=== PATIENT | female | born 2000 | race Caucasian/White ===

== ENCOUNTER → 2023-05-04 11:14 | Outpatient (CLI) | payer OTHER, SELFPAY ==
--- NOTE | ~2023-05-04 | US_ITS ---
EXAMINATION: US OB follow up DATE: 05/04/2023 11:37 INDICATION: Amniotic fluid and presentation assessment during third trimester TECHNIQUE: Real-time ultrasound of the pelvis was performed. The interpreting radiologist was not pre sent for the study. COMPARISON: None. FINDINGS: There is a single living fetus in breech presentation. The placenta is to the left. c ardiac activity and movement are noted. heart rate is 131 beats per minute (bpm). The amn iotic fluid index is 11.7 cm which is normal (normal range: 7.5 cm to 24.4 cm). The following biometric data were obtained: Biparietal diameter (BPD): 8.9 cm; head circumference (HC): 33.6 cm; abdominal circumference (AC): 35 .2 cm; femur length (FL): 7.3 cm. These measurements are concordant. Estimated weight is 3461 g +/- 519 g, which correlates with the 85th percentile when 05/24/2023 i s used as estimated date of delivery. As single measurements, these parameters are each equal to the following estimated gestational ages w ith ranges of +/- 2 standard deviations: BPD: 36 weeks 2 days ( 33 weeks 1 days - 39 weeks 3 days). HC: 38 weeks 4 days ( 35 weeks 6 days - 41 weeks 2 days). AC: 39 weeks 1 days ( 36 weeks 0 days - 42 weeks 1 days). FL: 37 weeks 4 days ( 34 weeks 3 days - 40 weeks 4 days). estimated gestational age based solely on measurements from this exam is 37 weeks 6 days +/- 2 weeks 5 days. IMPRESSION: 1. Single living fetus in breech presentation. 2. Normal amniotic fluid index. 3. Estimated weight is 3461 g +/- 519 g, which correlates with the 85th percentile when 4 is used as estimated date of delivery. Reviewed, dictated and finalized at location [facility] IMPRESSION: 1. Single living fetus in breech presentation. 2. Normal amniotic fluid index. 3. Estimated weight is 3461 g +/- 519 g, which correlates with the 85th p ercentile when 05/24/2023 is used as estimated date of delivery.
== END ==
PROVIDERS: PCP Obstetrics & Gynecology; Visit Provider Obstetrics & Gynecology
DX: Z34.93 Encounter for supervision of normal pregnancy, unspecified, third trimester (principal); Z3A.37 37 weeks gestation of pregnancy
CPT/HCPCS: 76816

== ENCOUNTER 2023-05-18 13:16 | Outpatient (CLI) | payer OTHER, SELFPAY ==
[2023-05-18 13:48] LABS: Hematocrit 39.1 % (37.0-47.0); Mean Corpuscular HGB Conc 33.2 g/dl (32-36); Mean Corpuscular Hemoglobin 30.4 pg (26-34); Mean Corpuscular Volume 91.4 fl (80-100); Mean Platelet Volume 10.8 fl (7.4-10.4); Platelet Count Result 215 k/mm3 (150-375); Red Blood Count 4.28 M/mm3 (4.2-5.4); Red Cell Distribution Width 13.5 % (11.5-14.5); White Blood Count 10.1 K/mm3 (4.5-10.0)
[2023-05-18 14:32] LABS: Rapid Plasma Reagin Non-Reactive (NonReactive)
== END 2023-05-18 13:17 | disposition home or self-care (01) ==
PROVIDERS: PCP Obstetrics & Gynecology; Visit Provider Obstetrics & Gynecology
DX: Z34.93 Encounter for supervision of normal pregnancy, unspecified, third trimester (principal); Z3A.00 Weeks of gestation of pregnancy not specified
CPT/HCPCS: 36415; 85027; 86592; 86850; 86900; 86901

== ENCOUNTER 2023-05-19 09:50 | Inpatient (IN) | payer OTHER, SELFPAY ==
[2023-05-19] VITALS (47 sets, daily range): BP systolic 101–148; BP diastolic 65–117; PULSE 64–169; RESP 16–18; TEMP 36.1–36.6; O2SAT 97–100; BMI 26.6
--- NOTE | 2023-05-19 10:07 | LDADM ---
This patient, Milana Gomez, was admitted to OB Post [facility] on 05/19/23 at 09:50. Plans for labor, pain management and were discussed with patient. Patient/family oriented to hospital policies and general routines including ID bracelet, bed and alarms, visiting hours, pain management, procedures, bathroom and other care routines, personal items, smoking policy, room service/diet and guest tray routines, infant security routines, and visiting hours. Patient/Family are encouraged to report perceived risks to care and to ask questions if they do not understand what they are told or what they should do. See OBIX for further documentation.
[2023-05-19] MEDS: ACETAMINOPHEN 500 MG TABLET 1000 MG PO (10:16)
[2023-05-19] MEDS: LACTATED RINGERS 1,000 ML 125 ML IV CONT ×2 (10:17→10:58)
[2023-05-19] MEDS: ONDANSETRON INJ 4 MG/2 ML VIAL IV PUSH ×2 (11:37→19:32)
[2023-05-19] MEDS: FAMOTIDINE 20 MG/2 ML VIAL IV PUSH (11:37)
--- NOTE | 2023-05-19 11:48 | P.PNAN_ITS ---
Anes - Initial Pre Proc Eval Procedure: Operation Date: 05/19/23 12:00 Proposed Procedures p Section - Jo Ann Ellis MD Date/Time: 05/19/23 11:48 Surgeon: Jo Ann Ellis MD Pre Op Diagnosis: c/s Patient Data Age: 23 Gender: F Height: 1.57 m Weight: 66 kg Last Vital Signs Pulse 89 05/19/23 11:46 BP 148/81 H 05/19/23 11:46 O2 Del Method Room Air 05/19/23 10:06 Allergies Allergy/AdvReac Type Severity Reaction Status Date / Time No Known Allergies Allergy Verified 05/13/23 15:55 Home Medications Medication Instructions Recorded Confirmed Type [id number] fum 65 mg 1 pkg PO ONCE 09/23/22 05/19/23 History iron-folic acid 1 mg-dha 250 mg oral roel Patient hx anesthesia problems: none Family hx anesthesia problems: none Results Review: All pre-operative results and documents have been reviewed as part of the pre- operative evaluation. [facility] Past Medical History Medical History KISHA (amniotic fluid index) decreased History of irregular menstrual cycles Suppression of menstruation Surgical History Surgical History History of wisdom tooth extraction Family History Family History Other Patient denies significant medical history Social History Social History Smoking status: Former smoker Tobacco type: e-cigarettes/vaping Alcohol intake: former Alcohol use details: 4 month Substance use: never Substance use type: does not use Do You Feel Safe in your Home?: Yes Lack of Transportation: No Lack of Food: Never True Current Housing: I Have Housing Concerned About Future Housing: No Difficulty Paying Gas/Electric Bills: No Difficulty Paying for Meds: No Currently Unemployed: No Education: Don't Know Difficulty w/ Childcare or Family Care: No Living arrangements: other Additional living arrangements comments: Occupation/Education: occupation 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 Gender identity (if verbalized by the patient): Female Sexual Orientation (if Verbalized by the Patient): Straight or Heterosexual Spiritual care concerns: No Anes - Eval Final PreProcedure Day of Procedure 05/19/23 11:48 Patient weight: overweight Heart: regular rate and rhythm Lungs: clear to auscultation Airway: Mallampati scale class II Neurological: alert and oriented Last oral intake: >/= 8 hours ASA classification: II Emergent: no Anesthetic plan: proceed Anesthesia type and monitoring: regional spinal and standard monitoring Results Review: All pre-operative results and documents have been reviewed as part of the pre- operative evaluation. Informed Consent: The patient's anesthetic plan and its attendant risks and benefits were discussed with the patient/family/POA. Questions were solicited and answers provided to the satisfaction of the patient/family/POA.
--- NOTE | 2023-05-19 12:04 | PM.IMHP ---
H&P: HPI History of Present Illness Date/Time: 05/19/23 07:00 Chief Complaint: scheduled Narrative: Milana is a 23yo @ 39.2wks (LORIE 05/24/23) who presents for scheduled primary low transverse section due to breech malpresentation. She reports good movements. No ctx, vb, or lof. She has had regular care. Her is complicated by: - Breech malpresentation - Low lying placenta-- RESOLVED Review of Systems Constitutional: Constitutional: Denies chills, Denies fever(s) and Denies headache(s) Eyes: Eyes: Denies change in vision ENT: Denies headache(s) Cardiovascular: Cardiovascular: Denies chest pain and Denies dyspnea Respiratory: Respiratory: Denies dyspnea Genitourinary: Genitourinary: Denies abnormal vaginal bleeding and Denies vaginal discharge Neurologic: Denies headache(s) Psychiatric: Psychiatric: Denies anxiety and Denies depression PMFSH Past Medical History Medical History KISHA (amniotic fluid index) decreased History of irregular menstrual cycles Suppression of menstruation Surgical History Surgical History History of wisdom tooth extraction Family History Family History Other Patient denies significant medical history Social History Social History Smoking status: Former smoker Tobacco type: e-cigarettes/vaping Alcohol intake: former Alcohol use details: 4 month Substance use: never Substance use type: does not use Do You Feel Safe in your Home?: Yes Lack of Transportation: No Lack of Food: Never True Current Housing: I Have Housing Concerned About Future Housing: No Difficulty Paying Gas/Electric Bills: No Difficulty Paying for Meds: No Currently Unemployed: No Education: Don't Know Difficulty w/ Childcare or Family Care: No Living arrangements: other Additional living arrangements comments: Occupation/Education: occupation 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 Gender identity (if verbalized by the patient): Female Sexual Orientation (if Verbalized by the Patient): Straight or Heterosexual Spiritual care concerns: No Meds Home Medications and Allergies Home Medications Medication Instructions Recorded Confirmed Type [id number] fum 65 mg 1 pkg PO ONCE 09/23/22 05/19/23 History iron-folic acid 1 mg-dha 250 mg oral roel Allergies Allergy/AdvReac Type Severity Reaction Status Date / Time No Known Allergies Allergy Verified 05/13/23 15:55 Exam Const: General: cooperative, healthy appearing, comfortable and no acute distress Orientation/consciousness: patient oriented x3 Resp: Effort & Inspection: normal respiratory effort Cardio: Rate: regular rate GI: GI Palp: No abdominal tenderness : Other: FHT's: 130's/ mod abner/ + accels/ no decels - cat 1 TOCO: irregular ctxs Membranes: intact Presentation: BREECH Skin: General skin exam: normal color Neuro: General: patient oriented x3 Extrem: General: normal to inspection Psych: Appearance: grossly normal Affect: normal affect Attitude: cooperative Assessment and Plan Assessment and plan (1) Breech presentation: Qualifiers: Fetus number: single or unspecified fetus Qualified Code(s): O32.1XX0 - Maternal care for breech presentation, not applicable or unspecified Code(s): O32.1XX0 - Maternal care for breech presentation, not applicable or unspecified Status: Acute Plan - Breech malpresentation confirmed on bedside US - Pt declines EVC and wants to proceed with pLTCS - Risks and benefits discussed in detail - heart tones reassuring - Ancef 2g IV once pre-op
--- NOTE | 2023-05-19 12:05 | WPDHPUPDATE1 ---
History and Physical Update Update Date/Time: 05/19/23 12:05 History and Physical has been reviewed, including an updated exam of the patient. There are NO changes in the patient's condition. Risks, benefits, and alternatives have been discussed and questions answered. Patient agrees to proceed with procedure.
[2023-05-19] MEDS: ceFAZolin 2 GM/D5W 50 ML 2 GM/50 ML BAG IVPB (12:07)
--- NOTE | 2023-05-19 13:17 | W.PM.OBCSD ---
OB - Delivery Note Procedure Delivery date: 05/19/23 Pre-op diagnosis: Breech Presentation Post-op Diagnosis: Same Procedure Performed: Primary Primary branch: low cervical, transverse Surgeon: Jo Ann Ellis MD Anesthesia type: Spinal Description of Procedure/Findings: markell breech female; meconium stained fluid, normal bilateral fallopian tubes and ovaries. Good hemostasis at end of case. Specimen: No Estimated Blood Loss: 485 Pathology: None sent Complications: No immediate complications Condition: Stable Disposition: Floor [place] Baby Date of : 05/19/23 Time of : 12:38 Weeks of gestation at delivery: 39 (.2) gender: Female Weight (pounds): 8 Weight (ounces): 3 presentation: markell breech Placenta delivery description: Expressed Cord Vessel Description: 3 Vessels and Clamped/Cut score one minute: 8 score five minutes: 9 Narrative: She was counseled on all risks and benefits in detail. She was taken to the operating room where spinal was placed. She was then prepped and draped in the normal sterile fashion. She received 2g Ancef and a time out was performed. A Pfannenstiel incision was made in the skin and carried down to the underlying fascia. The fascia was nicked on either side of the midline and the fascial incision was extended laterally and superiorly using curved Badillo scissors. The fascia was then elevated using Rosy clamps and the underlying rectus muscles were dissected off the fascia, superiorly and inferiorly. The rectus muscles were then in the midline and the peritoneum was entered bluntly. Once adequate exposure was obtained, a Mobius self retractor was placed within the abdomen. A low transverse incision was made on the lower uterine segment and meconium stained fluid was noted. The fetus was delivered doing normal breech maneuvers without complications. The had spontaneous cry and the mouth and nose were bulb suctioned. The cord was clamped and cut and the infant was handed off to the awaiting pediatric nurse. A segment of the cord was collected for cord gases. The remaining cord blood was collected for typing. With pitocin infusing, the placenta delivered with gentle traction on the cord without complications. The uterus was then cleared out of all clots and debris using a clean, moist lap. The hysterotomy was then repaired in a running fashion using 0 Vicryl. A second layer imbricating suture was then made using 0 Vicryl. The hysterotomy was found to be hemostatic and good uterine tone was noted. The bilateral adnexa were examined and found to be normal. The pelvis was cleared of all clots and fluid. The Mobius retractor was removed from the abdomen. The peritoneum, muscle, and fascia were examined and made hemostatic with bovie cautery. The fascia was then repaired using a 0 Vicryl suture in a running fashion. The subcutaneous tissue was then irrigated and made hemostatic with bovie cautery. The skin was then closed using 4-0 Monocryl in a running subcuticular fashion. A Mepilex dressing was placed over the incision. Sponge, lap, needle and instrument counts were correct at the end of the procedure x2. The patient tolerated the procedure well and was taken to recovery in a stable condition. [facility] Delivery Billing Delivery Delivery: Delivery Charge
[2023-05-19] MEDS: OXYTOCIN 30 UNITS/NS 500 ML 30 UNITS/500 ML BAG 125 UNITS IV CONT (14:51)
[2023-05-19] MEDS: MORPHINE SULFATE INJ (*CRX) 10 MG/ML AMP 3 MG IV PUSH ×2 (15:00→15:10)
--- NOTE | 2023-05-19 15:13 | PC.NURSE ---
Dr Ellis notified of increase in bleeding and passing clots, orders received.
[2023-05-19] MEDS: miSOPROStol 200 MCG TABLET 1000 MCG (15:20)
--- NOTE | 2023-05-19 15:51 | PC.NURSE ---
[id number] Called to assist with that was born primary C/S for breech at 1238. was feoc-it-ayth with mother in laid-back position attempting to latch. opens and is unable to latch effectively. When cries the mouth is opened wide, however; the tongue goes to the top gumline. Infant opens wide, then slides to a shallow opening with the nipple in the front of the mouth visible. When the latches and the nipple is not visualized, then dimpling is seen and infants mouth moves to shallow and stops efforts. Nursery RN has expressed 2mls of colostrum and syringe fed it to the infant. Encouraged understanding of the benefits of skin to skin (demonstrating unwrapping infant and placing upright on her chest), stimulating with massage touch, changing positions to encourage wakefulness, how to watch for early feeding cues, responsive feeding, feeding on demand (aiming for 8-12 times in 24 hours, about every 2-3 hours), milk production, hand expression, spoon/syringe feeding, and how to protect the milk supply and breast focus. Mother works well with her with encouragement, education, and practices hand expression. Mother acknowledges understanding of the information and the plan is to meet again on the post- floor as she will be transferred soon. Reported to the PP receiving RN.
[2023-05-19] MEDS: KETOROLAC 30 MG/ML VIAL (*BKC) IV PUSH ×2 (17:06→22:10)
[2023-05-19] MEDS: DEXTROSE 5%/0.45% SOD CHL 1,000 ML 125 ML IV CONT (19:32)
[2023-05-19] MEDS: ACETAMINOPHEN 325 MG TABLET 650 MG PO (22:10)
[2023-05-20 01:36] VITALS: BP 113/62; PULSE 89; RESP 16; TEMP 36.7; O2SAT 98
[2023-05-20 06:02] LABS: Basophils Absolute Auto 0.1 K/mm3 (0.0-0.1); Basophils Percent Auto 0.3 % (0.2-1.2); Eosinophils Absolute Auto 0.1 K/mm3 (0-0.3); Eosinophils Percent Auto 0.4 % (0-4.4); Hematocrit 29.9 % (37.0-47.0); Hemoglobin 10.2 g/dL (12.0-15.0); Immature Granulocyte Absolute 0.23 K/mm3 (0.00-0.031); Immature Granulocyte Percent A 1.4 % (0-0.5); Lymphocytes Absolute Auto 1.44 K/mm3 (0.9-3.2); Mean Corpuscular HGB Conc 34.1 g/dl (32-36); Mean Corpuscular Volume 90.9 fl (80-100); Mean Platelet Volume 11.1 fl (7.4-10.4); Monocytes Absolute Auto 1.5 K/mm3 (0.1-0.6); Monocytes Percent Auto 9.6 % (2.6-8.5); Neutrophils Absolute Auto 12.7 K/mm3 (1.3-6.7); Neutrophils Percent Auto 79.3 % (45.5-73.1); Platelet Count Result 210 k/mm3 (150-375); Red Blood Count 3.29 M/mm3 (4.2-5.4); Red Cell Distribution Width 13.2 % (11.5-14.5)
--- NOTE | 2023-05-20 06:35 | P.PNOB_ITS ---
OB - PN: Subj Subjective Date/time seen: 05/20/23 06:35 Narrative: POD#1 Milana reports doing well today. 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 Her pain is controlled with po meds. She is tolerating regular diet (snacked). The catheter was removed around 0500; has not had spontaneous void. Ambulated in the room last night; no symptoms of anemia. She denies any issues with her incision. She is breast feeding. OB - PN: Obj Data Labs 05/20/23 05:18 OB - PN A/P Assessment and Plan (1) S/P section: Code(s): Z98.891 - History of uterine scar from previous surgery Status: Acute (2) Breech presentation: Qualifiers: Fetus number: single or unspecified fetus Qualified Code(s): O32.1XX0 - Maternal care for breech presentation, not applicable or unspecified Code(s): O32.1XX0 - Maternal care for breech presentation, not applicable or unspecified Status: Acute Plan day: 1 Plan: routine care Comments: - continue pain meds - awaiting spontaneous void; if nothing in 6 hours, plan for bladder scan and possible replacement of crockett if large volume noted - regular diet/po hydration/ambulation encouraged - continue to monitor bleeding - put baby to breast Time Spent With Patient Time: Total time spent is greater than 50% in coordination of care (as documented) at patient's floor/unit and/or counseling patient: Review of Systems Constitutional: Constitutional: Denies chills, Denies fever(s) and Denies headache(s) Eyes: Eyes: Denies change in vision ENT: Denies dizziness and Denies headache(s) Cardiovascular: Cardiovascular: Denies chest pain, Denies palpitations and Denies dyspnea Respiratory: Respiratory: Denies cough and Denies dyspnea Gastrointestinal: Gastrointestinal: Denies nausea and Denies vomiting Genitourinary: Comments: normal bleeding Neurologic: Denies dizziness and Denies headache(s) Endocrine: Endocrine: Denies palpitations Exam Const: General: cooperative, healthy appearing, comfortable and no acute distress Orientation/consciousness: patient oriented x3 Resp: Effort & Inspection: normal respiratory effort Auscultation: clear to auscultation bilaterally Cardio: Rate: regular rate GI: Inspection: non-distended and incision (covered with clean dressing) GI Palp: Yes abdominal tenderness (appropriate) and Yes Soft to palpation Auscultation: normal bowel sounds : Other: fundus firm Skin: General skin exam: normal color Neuro: General: patient oriented x3 Extrem: General: normal to inspection Psych: Appearance: grossly normal Affect: normal affect Attitude: c ooperative
[2023-05-20] MEDS: DOCUSATE SODIUM 100 MG CAPSULE PO ×2 (06:40→16:32)
[2023-05-20] MEDS: SIMETHICONE 80 MG TAB.CHEW PO ×3 (06:40→16:32)
[2023-05-20] MEDS: LIDOCAINE 5% PATCH 1 PATCH TRANSDERM (06:40)
[2023-05-20] MEDS: MULTIVIT/MIN/PREN/FOL AC/IRON TABLET 1 TAB PO (06:40)
[2023-05-20] MEDS: ACETAMINOPHEN 325 MG TABLET 650 MG PO ×2 (06:40→12:30)
[2023-05-20] MEDS: IBUPROFEN 600 MG TABLET PO ×2 (06:40→12:30)
[2023-05-20 08:10] VITALS: BP 112/62; PULSE 74; RESP 16; TEMP 37.3; O2SAT 98
[2023-05-20 12:11] VITALS: BP 129/68; PULSE 88; RESP 16; TEMP 37.2; O2SAT 100
--- NOTE | 2023-05-20 13:38 | WPDANLDPN2 ---
Anes-Prog Note L&D Date/Time: 05/20/23 13:38 Comfortable throughout: labor and delivery Neuraxial method: epidural Epidural/Spinal procedure site: clean & non-tender Neuro status: Neuro function grossly intact. Cardiovascular status: normal Respiratory status: normal Airway patency: baseline Mental status: baseline Post-Op hydration status: normal Vital Signs: Last Vital Signs Temp 99 F 05/20/23 12:11 Pulse 88 05/20/23 12:11 Resp 16 05/20/23 12:11 BP 129/68 05/20/23 12:11 Pulse Ox 100 05/20/23 12:11 O2 Del Method Room Air 05/20/23 01:36 Pain score (VAS): 0/10 I/O: Intake & Output 05/19/23 05/20/23 05/20/23 23:59 07:59 15:59 Intake Total 2200 Output Total 500 2650 Balance -500 -450 Post-procedural complaints: none Patient feedback: Patient satisfied with anesthetic care.
--- NOTE | 2023-05-20 13:38 | WPDANLDPN2 ---
Anes-Prog Note L&D Date/Time: 05/20/23 13:38 Comfortable throughout: section Neuraxial method: spinal Epidural/Spinal procedure site: clean & non-tender Neuro status: Neuro function grossly intact. Cardiovascular status: normal Respiratory status: normal Airway patency: baseline Mental status: baseline Post-Op hydration status: normal Vital Signs: Last Vital Signs Temp 99 F 05/20/23 12:11 Pulse 88 05/20/23 12:11 Resp 16 05/20/23 12:11 BP 129/68 05/20/23 12:11 Pulse Ox 100 05/20/23 12:11 O2 Del Method Room Air 05/20/23 01:36 Pain score (VAS): 0 I/O: Intake & Output 05/19/23 05/20/23 05/20/23 23:59 07:59 15:59 Intake Total 2200 Output Total 500 2650 Balance -500 -450 Post-procedural complaints: none Patient feedback: Patient satisfied with anesthetic care.
--- NOTE | 2023-05-20 13:40 | WPDANLDNPN2 ---
Anes-Prog Note L&D-Neuraxial Date/Time: 05/20/23 13:40 Neuraxial medications: intrathecal PF morphine Opiod-related complaints: none Patient feedback: Patient satisfied with post-operative pain management.
--- NOTE | 2023-05-20 17:26 | PC.NURSE ---
[id number] Purposefully rounded to assess needs. Mother is demonstrating independent to the right breast using cradle positioning, infant has nice rounded cheek line with good rocking motion, suck/swallow/pause appropriate, and mother denies pain. Infant self detached and there was very slight misshaping. Reviewed with mother attempting different positions as they both are learning working on the optimal latch. Reviewed comfort measures of healing with a warm, wet washcloth to rinse breast, then leave open to air-dry, good handwashing when or touching the breast/nipples to prevent infection. Mother voiced understanding of skin to skin, stimulating with massage touch, responsive feedings, hand expressed colostrum, talking to infant to encourage if it has been 2 -2.5 hours since the start of the last , to call if infant does not latch, or if there is discomfort with . Inpatient/outpatient resources provided with feeding sheet, name written on the communication board, and the mom/baby guide. Parents voiced understanding of information, demonstrated learning and will call if there is a request for assistance.
[2023-05-20 20:58] VITALS: BP 129/90; PULSE 82; RESP 18; TEMP 36.8; O2SAT 99
--- NOTE | 2023-05-21 07:12 | PM.OBPNVD ---
OB - PN: Subj Subjective Date/time seen: 05/21/23 07:12 Narrative: POD#2 Milana reports doing well today. 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 Her pain is better controlled today. She is tolerating regular diet, voiding, passing gas/had BM, and ambulating without issues. She denies any issues with her incision. She is breast feeding. OB - PN: Obj Data Labs 05/20/23 05:18 OB - PN A/P Assessment and Plan (1) S/P section: Code(s): Z98.891 - History of uterine scar from previous surgery Status: Acute (2) Breech presentation: Qualifiers: Fetus number: single or unspecified fetus Qualified Code(s): O32.1XX0 - Maternal care for breech presentation, not applicable or unspecified Code(s): O32.1XX0 - Maternal care for breech presentation, not applicable or unspecified Status: Acute Plan day: 2 Plan: routine care and discharge home (possibly this afternoon) Comments: - Pelvic rest; take meds as prescribed - Incision care/no heavy lifting - ER return precautions: fever, n/v/abd pain, bleeding, HTN Time Spent With Patient Time: Total time spent is greater than 50% in coordination of care (as documented) at patient's floor/unit and/or counseling patient: Review of Systems Constitutional: Constitutional: Denies chills, Denies fever(s) and Denies headache(s) Eyes: Eyes: Denies change in vision ENT: Denies dizziness and Denies headache(s) Cardiovascular: Cardiovascular: Denies chest pain, Denies palpitations and Denies dyspnea Respiratory: Respiratory: Denies cough and Denies dyspnea Gastrointestinal: Gastrointestinal: Denies nausea and Denies vomiting Genitourinary: Comments: normal bleeding Neurologic: Denies dizziness and Denies headache(s) Endocrine: Endocrine: Denies palpitations Exam Const: General: cooperative, comfortable and no acute distress Orientation/consciousness: patient oriented x3 Resp: Effort & Inspection: normal respiratory effort Auscultation: clear to auscultation bilaterally Cardio: Rate: regular rate GI: Inspection: non-distended and incision (covered with clean dressing) GI Palp: Yes abdominal tenderness (appropriate) and Yes Soft to palpation Auscultation: normal bowel sounds : Other: fundus firm Skin: General skin exam: normal color Neuro: General: patient oriented x3 Extrem: General: normal to inspection Psych: Appearance: grossly normal Affect: normal affect Attitude: cooperative
--- NOTE | 2023-05-21 07:32 | PM.OBDSVD ---
DS: Admitting Diagnosis Discharge Date 05/21/23 Admitting Diagnosis Breech malpresentation DS: Discharge Diagnosis Discharge Diagnosis (1) S/P section: Code(s): Z98.891 - History of uterine scar from previous surgery Status: Acute (2) Breech presentation: Qualifiers: Fetus number: single or unspecified fetus Qualified Code(s): O32.1XX0 - Maternal care for breech presentation, not applicable or unspecified Code(s): O32.1XX0 - Maternal care for breech presentation, not applicable or unspecified Status: Acute OB - DS: Summary OB Procedures : Ultrasound OB Procedures Intrapartum: low cervical, transverse OB Procedures: : None Peripartum Data Infant Delivery Method: Section Procedures: Procedures Operation Date: 05/19/23 12:00 Actual Procedure Side Surgeon p Section Not Applicable Jo Ann Ellis MD complications: none 1: Gender: Female Disposition of : home Status at Discharge Functional status at discharge: independent ambulation Overall status at discharge: patient is back to baseline Time Spent with Patient Time attestation: Total time spent providing and/or coordinating discharge services: Time spent: Less than 30 minutes Exam Const: General: cooperative, healthy appearing, comfortable and no acute distress Orientation/consciousness: patient oriented x3 Resp: Effort & Inspection: normal respiratory effort Auscultation: clear to auscultation bilaterally Cardio: Rate: regular rate GI: Inspection: non-distended and incision (covered with clean dressing) GI Palp: No abdominal tenderness and Yes Soft to palpation Auscultation: normal bowel sounds : Other: fundus firm, minimal bleeding on pad Skin: General skin exam: normal color Neuro: General: patient oriented x3 Extrem: General: normal to inspection Psych: Appearance: grossly normal Affect: normal affect Attitude: cooperative DS: Data Data Completed and Pending Pending studies at discharge: Pending at discharge 05/20/23 09:42 Surgical [PTH] Routine Discharge Plan Discharge Attending physician on discharge: Jo Ann Ellis Discharging Clinician: Jo Ann Ellis Anticipated Discharge Date/Time: 05/22/23 10:00 Patient Disposition: Home, Self-Care Activity: may shower and pelvic rest Diet: as tolerated and regular Discharge Instructions: NO heavy lifting over 15lbs for 6 weeks Remove dressing from incision on 05/25/23 Patient Instructions: (DC) Stand Alone Forms: General Discharge Information Follow-up/Referrals: Jo Ann Ellis MD [Physician] - 4 Weeks Discharge Medications: New acetaminophen 325 mg Tablet 650 mg PO Q6H Qty: 90 0RF docusate sodium 100 mg Capsule 100 mg PO BID Qty: 120 0RF hydrocodone-acetaminophen 5-325 mg Tablet 1 tablet PO Q3H PRN (Reason: Moderate Pain (4-6)) Qty: 24 0RF ibuprofen 600 mg Tablet 600 mg PO Q6H Qty: 40 0RF Continued vit [id number] 65-1-250 mg combo pack 1 pkg PO ONCE Date of admission: 05/19/23 09:50 Primary Care Provider: Vito Kelly Admitting Provider: Jo Ann Ellis Attending physician on admission: Jo Ann Ellis Condition: Stable
[2023-05-21] MEDS: ACETAMINOPHEN 325 MG TABLET 650 MG PO (08:01)
[2023-05-21] MEDS: IBUPROFEN 600 MG TABLET PO (08:01)
[2023-05-21 09:05] VITALS: BP 129/77; PULSE 82; RESP 16; TEMP 37.2; O2SAT 99
[2023-05-21] MEDS: SIMETHICONE 80 MG TAB.CHEW PO (09:14)
[2023-05-21] MEDS: DOCUSATE SODIUM 100 MG CAPSULE PO (09:14)
[2023-05-21] MEDS: MULTIVIT/MIN/PREN/FOL AC/IRON TABLET 1 TAB PO (09:14)
[2023-05-21] MEDS: LIDOCAINE 5% PATCH 1 PATCH TRANSDERM (10:01)
[2023-05-21] MEDS: MEASLES,MUMPS,RUBELLA VACCINE 0.5 ML VIAL SUB-Q (11:34)
--- NOTE | 2023-05-21 17:27 | PC.NURSE ---
[id number] Mother demonstrates she is able to independently latch with appropriate positioning and alignment. She denies any nipple discomfort and is responsively . is currently meeting outcomes for weight, output, jaundice, blood sugar and feeding frequencies of 8-12 times in 24 hours. Wet diaper changed with 9ml of output weighed. Mother is encouraged to call for assistance if her infant doesn?t latch, pain with latching, questions or concerns. Mother voiced understanding of information shared along with the mom/baby guide for an additional resource. Reported to the Primary RN. [id number] Mother called for additional assessment and education regarding what a swallow looks and sounds like. is demonstrating well and parents voice understanding of the visual and audible signs of swallowing. Reminded mother to use good handwashing technique to prevent infection. Mother is feeding appropriately for growth of and understands stimulating infant to eat if needed. Infant has had appropriate feedings in the last 24 hours meets the outcomes for weight, output, blood sugar and jaundice at this time. Mother states she is confident to continue effectively her at home, when to call for assistance, denies any additional assistance or education at this time. Reinforced understanding of milk production, transition of milk, signs of adequate intake, transition of stool, prevention/relief of engorgement, plugged ducts, mastitis, responsive watching for feeding cues, the different methods of stimulating infant to breastfeed 1-3 hours after the start of the last feeding (with the help of the Primary RN), community resources, and when to call a provider using the resource of the mom and baby guide. Mother voiced understanding of the education shared. Reported to the Primary RN.
[2023-05-22 10:18] VITALS: BP 136/87; PULSE 90; RESP 18; TEMP 36.7; O2SAT 100
== END 2023-05-21 13:10 | disposition home or self-care (01) | DRG 787 ==
LOC: ANHOBPP 09:54 → ANHOB2 16:19
PROVIDERS: Admitting Provider Obstetrics & Gynecology; PCP Internal Medicine; Visit Provider Obstetrics & Gynecology
PROC: 10D00Z1 Extraction of Products of Conception, Low, Open Approach (ICD-10-PCS; CPT 59514; principal; 2023-05-19 12:00)
DX: O32.1XX0 Maternal care for breech presentation, not applicable or unspecified (principal); O72.1 Other immediate postpartum hemorrhage; Z37.0 Single live birth; Z3A.39 39 weeks gestation of pregnancy; O77.0 Labor and delivery complicated by meconium in amniotic fluid
CPT/HCPCS: 36415; 85025; 85027; 86592; 86850; 86900; 86901; 88307; 90710; A9270; J0690; J1885; J2270; J2274; J2405; J2590; J7120